=== PATIENT | male | born 1960 | race Caucasian/White ===

== ENCOUNTER 2017-07-13 06:17 | Emergency (ER) | payer SELFPAY ==
[2017-07-13] MEDS ORDERED: OXYCODONE-ACETAMINOPHEN 5-325 MG TABLET PO ONE (07:39)
--- NOTE | 2017-07-13 07:41 | ER Document Report ---
HPI - HPI Patient complains to provider of: right shoulder pain Onset: Yesterday Onset/Duration: Sudden Quality of pain: Sharp Severity: Severe Pain Level: 5 Context: Patient states he tripped landing on right shoulder last night about 930. Complains of pain and states he is unable to move the shoulder. Does have a history of multiple fractures and orthopedic surgeries in the past. Associated Symptoms: None Exacerbated by: Walking Relieved by: Denies Similar symptoms previously: Yes Recently seen / treated by doctor: No - ROS ROS below otherwise negative: Yes Systems Reviewed and Negative: Yes All other systems reviewed and negative - CONSTITUTIONAL Constitutional: DENIES: Fever - EENT EENT: DENIES: Congestion - NEURO Neurology: DENIES: Headache - CARDIOVASCULAR Cardiovascular: DENIES: Chest pain - RESPIRATORY Respiratory: DENIES: Trouble Breathing - GASTROINTESTINAL Gastrointestinal: DENIES: Abdominal Pain - MUSCULOSKELETAL Musculoskeletal: REPORTS: Extremity pain - Right shoulder - DERM Skin Color: Normal, [place] Skin Problems: None Past Medical History - General Information source: Patient - Social History Smoking Status: Never Smoker Frequency of alcohol use: Occasional Drug Abuse: None Lives with: Family Family History: Reviewed & Not Pertinent Patient has suicidal ideation: No Patient has homicidal ideation: No - Medical History Medical History: Negative Past Surgical History: Reports: Hx Neurologic Surgery - Head surgery to remove windsheild x2, Hx Orthopedic Surgery - left knee x12 right knee x1, left arm x2 , Hx Tonsillectomy Vertical Provider Document - CONSTITUTIONAL Agree With Documented VS: Yes Exam Limitations: No Limitations General Appearance: WD/WN, Mild Distress - HEENT HEENT: Atraumatic, Normocephalic - RESPIRATORY Respiratory: Breath Sounds Normal, No Respiratory Distress O2 Sat by Pulse Oximetry: 94 - CARDIOVASCULAR Cardiovascular: Regular Rate, Regular Rhythm - GI/ABDOMEN Gastrointestinal: Abdomen Soft - MUSCULOSKELETAL/EXTREMETIES Musculoskeletal/Extremeties: Tender, No Edema. negative: Eccymosis Notes: Very tender to touch right shoulder, refuses to move shoulder due to pain. Tender along joint anteriorly and posteriorly. Also tender along right trapezius muscle. - NEURO Level of Consciousness: Awake, Alert, Appropriate - DERM Integumentary: Warm, Dry, No Rash Course - Re-evaluation Re-evalutation: 07/13/17 08:51 X-ray negative and this was discussed with the patient. - Vital Signs Vital signs: Temp Pulse Resp BP Pulse Ox 98.2 F 86 20 146/95 H 94 07/13/17 06:22 07/13/17 06:22 07/13/17 06:22 07/13/17 06:22 07/13/17 06:22 Discharge - Discharge Clinical Impression: Contusion of right shoulder Qualifiers: Encounter type: initial encounter Qualified Code(s): S40.011A - Contusion of right shoulder, initial encounter Condition: Good Disposition: HOME, SELF-CARE Additional Instructions: Wear arm sling to help decrease movement of shoulder while painful Ice packs as needed Tylenol as needed, pain medication as needed Follow-up with your doctor for recheck if not better in 1 week. Return as needed Prescriptions: Oxycodone HCl/Acetaminophen [Percocet 10-325 Mg Tablet] 1 each PO TID PRN #15 tablet PRN Reason: Referrals: LOYDA GARLAND MD [ACTIVE STAFF] - Follow up as needed
--- NOTE | 2017-07-13 08:31 | RADIOLOGY REPORT (SQ) ---
EXAM DESCRIPTION: SHOULDER RIGHT 2 OR MORE VIEWS COMPLETED DATE/TIME: 07/13/2017 7:27 am REASON FOR STUDY: right shoulder injury COMPARISON: None. NUMBER OF VIEWS: Three views. TECHNIQUE: Internal rotation, external rotation, and Y view images acquired of the right shoulder. LIMITATIONS: None. FINDINGS: MINERALIZATION: Normal. BONES: No acute fracture or dislocation. No worrisome bone lesions. No significant osteophytes. GLENOHUMERAL JOINT: No significant findings. ACROMIOCLAVICULAR JOINT: Small osteophytes. No AC joint widening SOFT TISSUES: No calcifications. VISUALIZED RIBS, SPINE, AND LUNG: No other significant finding. OTHER: No other significant finding. IMPRESSION: No acute fracture or malalignment. Mild acromioclavicular joint bony spurring. TECHNICAL DOCUMENTATION: JOB ID: [id number] [employer]- All Rights Reserved Reading location - IP/workstation name: [email or web address]
[2017-07-13 09:15] VITALS: BP 124/68
== END 2017-07-13 09:15 | disposition home or self-care (01) ==
LOC: ER 06:17
DX: S40.011A Contusion of right shoulder, initial encounter (principal); M25.511 Pain in right shoulder; W01.0XXA Fall on same level from slipping, tripping and stumbling without subsequent striking against object, initial encounter; Y92.009 Unspecified place in unspecified non-institutional (private) residence as the place of occurrence of the external cause; Z98.890 Other specified postprocedural states
CPT/HCPCS: 99283

== ENCOUNTER 2017-09-03 15:59 | Emergency (ER) | payer OTHER ==
[2017-09-03] MEDS ORDERED: LIDOCAINE 1% INJ-PF (10 MG/ML) 30 ML SDV INJ ONE (16:14)
[2017-09-03] MEDS ORDERED: DIPH/PERTUSS(ACELL)/TETANUS VAC/PF 0.5 ML SYR (>=10YO) IM ONE (16:14)
--- NOTE | 2017-09-03 16:18 | ER Document Report ---
HPI - HPI Patient complains to provider of: Hand laceration Onset: This afternoon Onset/Duration: Sudden Quality of pain: Achy Pain Level: 3 Context: Patient was attempting to remove a part from a vehicle and his hand slipped cutting it on metal. Patient denies any change in sensation or mobility. Associated Symptoms: Other - Left hand laceration Exacerbated by: Denies Relieved by: Denies Similar symptoms previously: No Recently seen / treated by doctor: No - ROS ROS below otherwise negative: Yes Systems Reviewed and Negative: Yes All other systems reviewed and negative - NEURO Neurology: DENIES: Weakness - MUSCULOSKELETAL Musculoskeletal: DENIES: Extremity pain - DERM Skin Color: Normal Skin Problems: Laceration Past Medical History - General Information source: Patient - Social History Smoking Status: Never Smoker Frequency of alcohol use: Occasional Drug Abuse: None Occupation: None Family History: Reviewed & Not Pertinent - Medical History Medical History: Negative Renal/ Medical History: Denies: Hx Peritoneal Dialysis Past Surgical History: Reports: Hx Neurologic Surgery - Head surgery to remove windsheild x2, Hx Orthopedic Surgery - left knee x12 right knee x1, left arm x2 , Hx Tonsillectomy Vertical Provider Document - CONSTITUTIONAL Agree With Documented VS: Yes Exam Limitations: No Limitations - INFECTION CONTROL TRAVEL OUTSIDE OF THE [place] IN LAST 30 DAYS: No - HEENT HEENT: Atraumatic, Normocephalic - NECK Neck: Normal Inspection - RESPIRATORY Respiratory: No Respiratory Distress - CARDIOVASCULAR Pulses: Normal: Radial - MUSCULOSKELETAL/EXTREMETIES Musculoskeletal/Extremeties: MAEW, FROM - NEURO Level of Consciousness: Awake, Alert, Appropriate Motor/Sensory: No Motor Deficit, No Sensory Deficit - DERM Integumentary: Warm, Dry, Laceration - 1.25 cm lac dorsal aspect of left 3 MCP joint Course - Vital Signs Vital signs: Temp Pulse Resp BP Pulse Ox 99.2 F 104 H 16 142/93 H 96 09/03/17 16:08 09/03/17 16:08 09/03/17 16:08 09/03/17 16:08 09/03/17 16:08 Procedures - Laceration/Wound Repair Left Hand Wound length (cm): 1.2 Wound's Depth, Shape: Linear Laceration pre-procedure: Shur-Clens applied Anesthetic type: 1% Lidocaine Wound explored: Clean Wound Repaired With: Sutures Suture Size/Type: 5:0, Ethilon Number of Sutures: 3 Layer Closure?: No Post-procedure wound care: Sterile dressing applied Post-procedure NV exam normal: Yes Complications: No Hands back picture: 1 - lac Discharge - Discharge Clinical Impression: Hand laceration Qualifiers: Encounter type: initial encounter Foreign body presence: without foreign body Laterality: left Qualified Code(s): S61.412A - Laceration without foreign body of left hand, initial encounter Condition: Stable Disposition: HOME, SELF-CARE Instructions: Laceration Care ([facility]), Tetanus Immunization Given ([facility]) Additional Instructions: Return immediately for any new or worsening symptoms Followup with your primary care provider, call tomorrow to make a followup appointment Suture removal in 14 days Referrals: CONNER NINO, [ACTIVE STAFF] - Follow up as needed
[2017-09-03 17:30] VITALS: BP 141/96
== END 2017-09-03 17:30 | disposition home or self-care (01) ==
LOC: ER 15:59
DX: S61.412A Laceration without foreign body of left hand, initial encounter (principal); W45.8XXA Other foreign body or object entering through skin, initial encounter; Y93.89 Activity, other specified; Y92.59 Other trade areas as the place of occurrence of the external cause; Y99.0 Civilian activity done for income or pay
CPT/HCPCS: 99283; 90471; 90715; 12001; J3490

== ENCOUNTER 2017-10-04 18:52 | Emergency (ER) | payer OTHER ==
--- NOTE | 2017-10-04 19:26 | ER Document Report ---
HPI - HPI Pain Level: 4 Past Medical History - Social History Family History: Reviewed & Not Pertinent Renal/ Medical History: Denies: Hx Peritoneal Dialysis Past Surgical History: Reports: Hx Neurologic Surgery - Head surgery to remove windsheild x2, Hx Orthopedic Surgery - left knee x12 right knee x1, left arm x2 , Hx Tonsillectomy Vertical Provider Document - INFECTION CONTROL TRAVEL OUTSIDE OF THE [place] IN LAST 30 DAYS: No Course - Vital Signs Vital signs: Temp Pulse Resp BP Pulse Ox 99.0 F 89 20 157/101 H 95 10/04/17 19:18 10/04/17 19:18 10/04/17 19:18 10/04/17 19:18 10/04/17 19:18
--- NOTE | 2017-10-04 19:44 | ER Document Report ---
ED Medical Screen (RME) - General Chief Complaint: Finger Injury Stated Complaint: FINGER PAIN Time Seen by Provider: 10/04/17 19:26 Mode of Arrival: Ambulatory Information source: Patient Notes: 56-year-old male started with a hangnail of the third left middle finger and now it is progressed to a large paronychia. No felon. Needs I&D. TRAVEL OUTSIDE OF THE [place]. IN LAST 30 DAYS: No - Related Data Allergies/Adverse Reactions: ibuprofen Adverse Reaction (Verified 10/04/17 18:59) Past Medical History Renal/ Medical History: Denies: Hx Peritoneal Dialysis Past Surgical History: Reports: Hx Neurologic Surgery - Head surgery to remove windsheild x2, Hx Orthopedic Surgery - left knee x12 right knee x1, left arm x2 , Hx Tonsillectomy Physical Exam - Vital signs Vitals: Temp Pulse Resp BP Pulse Ox 99.0 F 89 20 157/101 H 95 10/04/17 19:18 10/04/17 19:18 10/04/17 19:18 10/04/17 19:18 10/04/17 19:18 Course - Vital Signs Vital signs: Temp Pulse Resp BP Pulse Ox 99.0 F 89 20 157/101 H 95 10/04/17 19:18 10/04/17 19:18 10/04/17 19:18 10/04/17 19:18 10/04/17 19:18
[2017-10-04] MEDS ORDERED: LIDOCAINE 1% INJ-PF (10 MG/ML) 30 ML SDV INJ ONE (20:32)
[2017-10-04] MEDS ORDERED: LIDOCAINE 1% INJ-PF (10 MG/ML) 30 ML SDV ONE (20:34)
[2017-10-04] MEDS ORDERED: TRAMADOL HCL 50 MG TABLET PO ONE (20:44)
--- NOTE | 2017-10-04 20:46 | ER Document Report ---
HPI - HPI Pain Level: 4 Context: Patient is a 56-year-old male presents emergency department the chief complaint of swelling of the left middle finger. Patient states that it initially started a hangnail which he picked apart and has had intermittent pus draining from it but now over the past 2 days is swollen. He has been trying to utilize warm soaks at home. He denies any redness or tenderness at the tip of the finger on the base of the finger or with range of motion. - EENT EENT: DENIES: Sore Throat, Ear Pain, Eye problems - NEURO Neurology: DENIES: Headache, Weakness, Vision blurred, Dizzinesss / Vertigo - CARDIOVASCULAR Cardiovascular: DENIES: Chest pain - RESPIRATORY Respiratory: DENIES: Trouble Breathing, Coughing - GASTROINTESTINAL Gastrointestinal: DENIES: Abdominal Pain, Black / Bloody Stools - URINARY Urinary: DENIES: Dysuria, Urgency, Frequency - MUSCULOSKELETAL Musculoskeletal: REPORTS: Extremity pain - LEFT HAND Past Medical History - General Information source: Patient - Social History Smoking Status: Unknown if Ever Smoked Family History: Reviewed & Not Pertinent Patient has suicidal ideation: No Patient has homicidal ideation: No Renal/ Medical History: Denies: Hx Peritoneal Dialysis Past Surgical History: Reports: Hx Neurologic Surgery - Head surgery to remove windsheild x2, Hx Orthopedic Surgery - left knee x12 right knee x1, left arm x2 , Hx Tonsillectomy Vertical Provider Document - CONSTITUTIONAL Agree With Documented VS: Yes Notes: PHYSICAL EXAM GENERAL: Alert, interacts well. EXTREMITIES:. No edema, radial pulses 2/4 bilaterally. No cyanosis. 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 NEUROLOGICAL: Alert and oriented x4. Normal speech. PSYCH: Normal affect, normal mood. SKIN: Warm, dry, normal turgor. No rashes or lesions noted. Patient with paronychia of the left middle finger - INFECTION CONTROL TRAVEL OUTSIDE OF THE [place] IN LAST 30 DAYS: No Course - Re-evaluation Re-evalutation: Patient is a 56 year old male who presents with symptoms consistent with a paronychia without any associated cellulitis, felon, nailbed injury or tenosynovitis. Site was 90 to the bedside. Patient told the procedure well. Patient educated on utilizing frequent warm soaks enough to results and to take antibiotics to follow-up with primary care. Patient agrees with plan. Given strict return precautions and stable for discharge home - Vital Signs Vital signs: Temp Pulse Resp BP Pulse Ox 99.0 F 89 20 156/108 H 95 10/04/17 19:18 10/04/17 19:18 10/04/17 19:18 10/04/17 20:31 10/04/17 19:18 Procedures - Incision and Drainage Left Finger 3rd digit Type: Simple Anesthetic type: 1% Lidocaine mL's of anesthetic: 15 Blade size: 11 I&D procedure: Betadine prep applied Incision Method: Incision made by scalpel Discharge - Discharge Clinical Impression: Paronychia Condition: Good Disposition: HOME, SELF-CARE Instructions: Paronychia ([facility]), Post Incision and Drainage Additional Instructions: Utilize warm soaks as much as tolerated Prescriptions: Cephalexin Monohydrate [Keflex 500 mg Capsule] 500 mg PO QID #20 capsule Tramadol HCl 50 mg PO BID #6 tablet Referrals: ADRIANNA ERNANDEZ DO [NO LOCAL MD] - Follow up in 3-5 days
[2017-10-04] MEDS ORDERED: CEPHALEXIN 500 MG CAPSULE PO ONE ×2 (21:11→21:15)
[2017-10-04 21:26] VITALS: BP 163/102
== END 2017-10-04 21:26 | disposition home or self-care (01) ==
LOC: ER 18:52
DX: L03.012 Cellulitis of left finger (principal)
CPT/HCPCS: 99283

== ENCOUNTER 2018-03-30 16:14 | Emergency (ER) | payer OTHER ==
[2018-03-30] MEDS ORDERED: DIAZEPAM INJ 10 MG/2 ML DISP.SYRIN IM ONE (18:30)
[2018-03-30] MEDS ORDERED: LIDOCAINE 5% (700 MG) TRANSDERMAL ADH..PATCH TP ONE (18:31)
--- NOTE | 2018-03-30 18:54 | ER Document Report ---
HPI - HPI Patient complains to provider of: back spasms Time Seen by Provider: 03/30/18 18:12 Onset: Other - 2 weeks Onset/Duration: Gradual Pain Level: 5 Context: 37-year-old male with extensive pain history secondary to multiple traumas presents to the emergency department with back spasms times 2 weeks. He states he has fibromyalgia that starts in his hands and his feet in which the pain gets severe and causes him to tense up. He then developed back pain that started 2 weeks ago, and it led to back spasms 2 days ago causing him unrelenting pain. He says he has a high pain tolerance and can deal with the pain but the back spasms he can handle. He cannot take NSAIDs because he said he was taking them for 16 years and developed severe gastritis. Only taken Tylenol for and lidocaine patches for the pain. Eyes fevers, urinary retention , does endorse overflow incontinence, denies any new numbness or tingling in his bilateral lower extremities, denies saddle paresthesia - CONSTITUTIONAL Constitutional: DENIES: Fever, Chills Past Medical History - General Information source: Patient - Social History Smoking Status: Former Smoker Frequency of alcohol use: every night Drug Abuse: None Family History: Reviewed & Not Pertinent Patient has suicidal ideation: No Patient has homicidal ideation: No Renal/ Medical History: Denies: Hx Peritoneal Dialysis Past Surgical History: Reports: Hx Neurologic Surgery - Head surgery to remove windsheild x2, Hx Orthopedic Surgery - left knee x12 right knee x1, left arm x2 , Hx Tonsillectomy Vertical Provider Document - CONSTITUTIONAL Agree With Documented VS: Yes - INFECTION CONTROL TRAVEL OUTSIDE OF THE [place] IN LAST 30 DAYS: No - HEENT HEENT: Atraumatic, Normocephalic - NECK Neck: Normal Inspection - RESPIRATORY Respiratory: Breath Sounds Normal, No Respiratory Distress - CARDIOVASCULAR Cardiovascular: Regular Rate, Regular Rhythm, No Murmur - NEURO Level of Consciousness: Awake, Alert, Appropriate Motor/Sensory: No Motor Deficit - Full range of active and passive motion, No Sensory Deficit - Sensory intact to light touch. Patient with baseline paresthesias distal left lower extremity. negative: Sensory Deficit, Weak Motor Strength LLE Course - Vital Signs Vital signs: Temp Pulse Resp BP Pulse Ox 98.1 F 96 16 154/98 H 93 03/30/18 16:23 03/30/18 16:23 03/30/18 16:23 03/30/18 16:23 03/30/18 16:23 Discharge - Discharge Clinical Impression: Back muscle spasm Condition: Stable Disposition: HOME, SELF-CARE Instructions: Low Back Pain ([facility]), Warm Packs ([facility]) Additional Instructions: you were seen in the emergency department this evening for back muscle spasms. Continue to take the Tylenol as you have been taking it as it is a safe dose. Also, you can continue to use the Lidoderm patches if it gives her relief. I have prescribed you with a muscle relaxant called Flexeril. This can be sedating so use extreme caution or try to avoid driving when taking it. If possible, you can take it before bed to help relax you before going to sleep. [facility]. If you develop fever, urinary retention where you are unable to urinate, you develop saddle paresthesia i.e. numbness in your sit bones or any new numbness or tingling in your legs immediately return to the emergency department.
[2018-03-30 19:59] VITALS: BP 145/99
== END 2018-03-30 19:55 | disposition home or self-care (01) ==
LOC: ER 16:14
DX: M62.830 Muscle spasm of back (principal); M79.7 Fibromyalgia; Z79.899 Other long term (current) drug therapy; Z87.891 Personal history of nicotine dependence
CPT/HCPCS: 99283; 96372; J3360

== ENCOUNTER 2018-07-08 15:47 | Emergency (ER) | payer OTHER ==
[2018-07-08] MEDS ORDERED: ASPIRIN 81 MG TABLET, CHEWABLE PO ONE (16:49)
--- NOTE | 2018-07-08 16:54 | ER Document Report ---
ED Medical Screen (RME) - General Chief Complaint: Chest Pain Stated Complaint: CHEST PAIN, SHORTNESS OF BREATH Time Seen by Provider: 07/08/18 16:51 TRAVEL OUTSIDE OF THE [place] IN LAST 30 DAYS: No - HPI Notes: 07/08/18 16:51 Patient came in complaining of chest pain with shortness of breath. He said his father of massive [place]. 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 Physical exam shows a obesity, chest and abdomen unremarkable. - Related Data Allergies/Adverse Reactions: ibuprofen Adverse Reaction (Verified 07/08/18 15:49) Past Medical History - Social History Frequency of alcohol use: daily Drug Abuse: None Renal/ Medical History: Denies: Hx Peritoneal Dialysis Past Surgical History: Reports: Hx Neurologic Surgery - Head surgery to remove windsheild x2, Hx Orthopedic Surgery - left knee x12 right knee x1, left arm x2, Hx Tonsillectomy Physical Exam - Vital signs Vitals: Temp Pulse Resp BP Pulse Ox 98.1 F 98 16 132/114 H 97 07/08/18 16:37 07/08/18 16:37 07/08/18 16:37 07/08/18 16:37 07/08/18 16:37 Course - Vital Signs Vital signs: Temp Pulse Resp BP Pulse Ox 98.1 F 98 16 132/114 H 97 07/08/18 16:37 07/08/18 16:37 07/08/18 16:37 07/08/18 16:37 07/08/18 16:37
[2018-07-08 17:14] LABS: ABSOLUTE BASOPHILS # (AUTO) 0.1 10^3/uL (0.0-0.2); ABSOLUTE EOSINOPHILS # (AUTO) 0.2 10^3/uL (0.0-0.6); ABSOLUTE LYMPHOCYTES (AUTO) 2.7 10^3/uL (0.5-4.7); ABSOLUTE MONOCYTES (AUTO) 0.7 10^3/uL (0.1-1.4); BASOPHILS % (AUTO) 0.5 % (0-2); EOSINOPHILS % (AUTO) 1.8 % (0-6); HEMATOCRIT 46.1 % (37.9-51.0); HEMOGLOBIN 16.5 g/dL (13.5-17.0); LYMPHOCYTES % (AUTO) 27.9 % (13-45); MEAN CORPUSCULAR HEMOGLOBIN 34.9 pg (27.0-33.4); MEAN CORPUSCULAR HGB CONC 35.8 g/dL (32.0-36.0); MEAN CORPUSCULAR VOLUME 98 fl (80-97); MONOCYTES % (AUTO) 7.7 % (3-13); PLATELET COUNT 210 10^3/uL (150-450); RED BLOOD COUNT 4.73 10^6/uL (4.35-5.55); RED CELL DISTRIBUTION WIDTH 12.4 % (11.5-14.0); SEGMENTED NEUTROPHILS % (AUTO) 62.1 % (42-78); TOTAL CELLS COUNTED % (AUTO) 100 %; WHITE BLOOD COUNT 9.6 10^3/uL (4.0-10.5)
[2018-07-08 17:19] LABS: INTERNATIONAL RATION (INR) 0.97; PROTHROMBIN TIME 13.4 SEC (11.4-15.4)
[2018-07-08 17:32] LABS: D-DIMER < 0.27 ug/mL (0.00-0.50)
[2018-07-08 17:36] LABS: ALANINE AMINOTRANSFERASE 35 U/L (21-72); ALBUMIN 4.8 g/dL (3.5-5.0); ALKALINE PHOSPHATASE 78 U/L (38-126); ANION GAP 12 (5-19); ASPARTATE AMINO TRANSFERASE 29 U/L (17-59); BILIRUBIN,DIRECT 0.3 mg/dL (0.0-0.4); BILIRUBIN,TOTAL 0.8 mg/dL (0.2-1.3); BLOOD UREA NITROGEN 19 mg/dL (7-20); CALCIUM 10.1 mg/dL (8.4-10.2); CARBON DIOXIDE 23 mmol/L (22-30); CHLORIDE 104 mmol/L (98-107); CREATINE KINASE 80 U/L (55-170); GLUCOSE 111 mg/dL (75-110); POTASSIUM 4.5 mmol/L (3.6-5.0); SODIUM 139.2 mmol/L (137-145); TOTAL PROTEIN 7.9 g/dL (6.3-8.2)
[2018-07-08 17:48] LABS: CREATINE KINASE MB 0.64 ng/mL (<4.55)
--- NOTE | 2018-07-08 17:48 | RADIOLOGY REPORT (SQ) ---
EXAM DESCRIPTION: CHEST SINGLE VIEW COMPLETED DATE/TIME: 07/08/2018 5:12 pm REASON FOR STUDY: chest pain COMPARISON: 08/06/2017 EXAM PARAMETERS: NUMBER OF VIEWS: One view. TECHNIQUE: Single frontal radiographic view of the chest acquired. RADIATION DOSE: NA LIMITATIONS: None. FINDINGS: LUNGS AND PLEURA: No opacities, masses or pneumothorax. No pleural effusion. MEDIASTINUM AND HILAR STRUCTURES: No masses. Contour normal. HEART AND VASCULAR STRUCTURES: Heart normal in size. Normal vasculature. BONES: No acute findings. HARDWARE: None in the chest. OTHER: No other significant finding. IMPRESSION: NO ACUTE RADIOGRAPHIC FINDING IN THE CHEST. TECHNICAL DOCUMENTATION: JOB ID: [id number] [employer]- All Rights Reserved Reading location - IP/workstation name: [email or web address]
[2018-07-08 17:52] LABS: TROPONIN I 0.049 ng/mL
--- NOTE | 2018-07-08 19:22 | EKG REPORT ---
SEVERITY:- NORMAL ECG - SINUS RHYTHM : Confirmed by: Endy Ford MD 08-Jul-2018 19:21:51
--- NOTE | 2018-07-09 00:08 | ER Document Report ---
ED General - General Chief Complaint: Chest Pain Stated Complaint: CHEST PAIN, SHORTNESS OF BREATH Time Seen by Provider: 07/08/18 16:51 TRAVEL OUTSIDE OF THE [place] IN LAST 30 DAYS: No - HPI Notes: Patient presents emergency department for evaluation of chest pain. 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 He states that about an hour after that he developed a tightness in his chest, that was substernal. He does not believe it radiated anywhere. He did have some pain in his left posterior scapular region, but states that he has fibromyalgia and this may have been the etiology. He felt some associated shortness of breath as well. Shortly after his arrival here in the emergency department he was chest pain- free. He has not had any resurgence of his chest pain. He admits that he does not see a doctor regularly. He has been told that his blood pressure has been elevated in the past but has not taken any medications for it. - Related Data Allergies/Adverse Reactions: ibuprofen Adverse Reaction (Verified 07/08/18 15:49) Past Medical History - Social History Smoking Status: Never Smoker Frequency of alcohol use: daily Drug Abuse: None Family History: CAD - Father, early CAD Patient has suicidal ideation: No Patient has homicidal ideation: No Renal/ Medical History: Denies: Hx Peritoneal Dialysis Other: Fibromyalgia Past Surgical History: Reports: Hx Neurologic Surgery - Head surgery to remove windsheild x2, Hx Orthopedic Surgery - left knee x12 right knee x1, left arm x2, Hx Tonsillectomy Review of Systems - Review of Systems Constitutional: No symptoms reported EENT: No symptoms reported Cardiovascular: See HPI Respiratory: See HPI Gastrointestinal: No symptoms reported Genitourinary: No symptoms reported Musculoskeletal: See HPI Skin: No symptoms reported Neurological/Psychological: No symptoms reported Physical Exam - Vital signs Vitals: Temp Pulse Resp BP Pulse Ox 98.1 F 98 16 132/114 H 97 07/08/18 16:37 07/08/18 16:37 07/08/18 16:37 07/08/18 16:37 07/08/18 16:37 - Notes Notes: Vital signs reviewed, please refer to chart. Patient is normocephalic, atraumatic. Pupils equal round, reactive to light. Neck is supple without meningismus. Heart is regular rate and rhythm. Lungs are clear to auscultation bilaterally. Abdomen is soft, nontender, normoactive bowel sounds throughout. Extremities without cyanosis, clubbing, edema. Calves are nontender. Peripheral pulses are equal. Skin is warm and dry. Patient is awake, alert, neurological exam is nonfocal. Course - Re-evaluation Re-evalutation: 07/09/18 00:06 Patient presented to the emergency department for evaluation. He was initially seen by the doctor in triage, orders placed. Is placed on a residential monitor. He remained moderately hypertensive, but not to emergency or urgency levels. He remained chest pain-free throughout the course of his stay here in the emergency department. He was actually sleeping comfortably on my evaluation. Laboratory investigations revealed no significant elevations in his troponin. He does have a very mildly elevated proBNP, but he is overweight. We discussed his risk factors. He does have untreated high blood pressure. We discussed lifetime modifications and weight loss for this. He will likely need medications. I expressed to him my concern over his risk factors and the need for him to follow-up. He voiced understanding to this. At this point his heart score is only 3. He is chest pain-free. I do believe an outpatient stress test is appropriate at this time. I explained this to the patient, but also explained that any return of his chest pain should prompt immediate return. He voiced understanding to this. I will give him instruction is on chest pain as well as high blood pressure, he is to return to the emergency department with worsening or new concerning symptoms of any sort. - Vital Signs Vital signs: Temp Pulse Resp BP Pulse Ox 98.1 F 98 19 152/99 H 93 07/08/18 16:37 07/08/18 16:37 07/08/18 23:01 07/08/18 23:01 07/08/18 23:01 - Laboratory Result Diagrams: 07/08/18 16:51 07/08/18 16:51 Laboratory results interpreted by me: 07/08/18 07/08/18 07/08/18 16:51 16:51 16:51 MCV 98 H MCH 34.9 H APTT 36.0 H Glucose 111 H - Diagnostic Test Radiology reviewed: Reports reviewed - No acute cardiopulmonary disease - EKG Interpretation by Me Additional EKG results interpreted by me: 07/09/18 00:10 Sinus mechanism with a rate of 90 bpm. Normal axis and intervals, no acute ST changes concerning for ischemia or infarction. Discharge - Discharge Clinical Impression: Chest pain, Elevated blood pressure reading Instructions: Chest Pain of Unclear Cause ([facility]), High Blood Pressure ([facility]) Additional Instructions: Your workup here today did not reveal a clear cause of your chest pain. You should have further testing, including an outpatient stress test. Lifestyle modifications, including weight loss, avoidance of sodium, may be helpful in lowering your blood pressure. You should see your primary care physician in regards to treating your blood pressure as well. If your chest pain returns, or you develop new or concerning symptoms of any sort, return immediately to the emergency department for reevaluation. Referrals: [facility] [Provider Group] - Follow up as needed
[2018-07-09 00:35] VITALS: BP 158/99
== END 2018-07-09 00:35 | disposition home or self-care (01) ==
LOC: ER 15:47
DX: R07.89 Other chest pain (principal); R03.0 Elevated blood-pressure reading, without diagnosis of hypertension; R00.2 Palpitations; M25.512 Pain in left shoulder; E66.3 Overweight; Z82.49 Family history of ischemic heart disease and other diseases of the circulatory system
CPT/HCPCS: 36415; 71045; 80053; 82550; 82553; 83880; 84484; 85025; 85379; 85610; 85730; 93005; 93010; 99285

== ENCOUNTER 2019-01-28 15:33 | Emergency (ER) | payer SELFPAY ==
[2019-01-28 15:38] VITALS: BP 140/105
[2019-01-28] MEDS ORDERED: KETOROLAC TROMETHAMINE 60 MG/2 ML SDV IM ONE (15:44)
[2019-01-28] MEDS ORDERED: HYDROCODONE/ACETAMINOPHEN 5-325 MG (6 TAB/ER DISP) PO PRN (15:44)
--- NOTE | 2019-01-28 15:50 | ER Document Report ---
HPI - HPI Time Seen by Provider: 01/28/19 15:44 Notes: Patient is a 58-year-old male with a history of fibromyalgia and multiple orthopedic surgeries who presents complaining of left shoulder pain for the past several months, but increasing over the past couple weeks. Patient states that it is gotten to the point where if he tries to flex his arm or abduct his arm he will feel a sharp pain in the shoulder. Patient states that he has not been evaluated for this as he does not have insurance at this time. Denies any injury. 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 Patient states that he does not have a true allergy to Motrin, but it does upset his stomach. He does take Aleve regularly otherwise. Pain does not radiate. He has not noticed any swelling or redness. Denies any headache, fever, neck pain, URI, sore throat, chest pain, palpitations, syncope, cough, shortness of breath, wheeze, dyspnea, abdominal pain, nausea/vomiting/diarrhea, urinary retention, dysuria, hematuria, loss of control of bowel or bladder, numbness/tingling, muscle paralysis/weakness, or rash. - ROS Systems Reviewed and Negative: Yes All other systems reviewed and negative Past Medical History - Social History Smoking Status: Unknown if Ever Smoked Family History: CAD - Father, early CAD Renal/ Medical History: Denies: Hx Peritoneal Dialysis Past Surgical History: Reports: Hx Neurologic Surgery - Head surgery to remove windsheild x2, Hx Orthopedic Surgery - left knee x12 right knee x1, left arm x2, Hx Tonsillectomy Vertical Provider Document - CONSTITUTIONAL Agree With Documented VS: Yes Notes: PHYSICAL EXAMINATION: GENERAL: Well-appearing, well-nourished and in no acute distress. NECK: Normal range of motion, supple without lymphadenopathy. Non-tender. Spurling negative. No rigidity/meningismus. LUNGS: Breath sounds clear to auscultation bilaterally and equal. No wheezes rales or rhonchi. HEART: Regular rate and rhythm without murmurs, rubs, gallops. Musculoskeletal: Lt shoulder: FROM to passive. LROM to active due to pain. Strength 4+/5 due to pain. + impingement test. No biceps tendon tenderness. No crepitus. No erythema or warmth. No deformity or ecchymosis. RC intact 5+/5 strength but 4+/5 with empty can due to pain when he flexes/abducts. Extremities: No cyanosis, clubbing, or edema b/l. Peripheral pulses 2+. Capillary refill less than 3 seconds. NEUROLOGICAL: Normal speech, normal gait. Normal sensory, motor exams PSYCH: Normal mood, normal affect. SKIN: Warm, Dry, normal turgor, no rashes or lesions noted. - INFECTION CONTROL TRAVEL OUTSIDE OF THE [place] IN LAST 30 DAYS: No Course - Re-evaluation Re-evalutation: 01/28/19 15:47 Patient is an afebrile, well-hydrated, 58-year-old male who presents to the ED with left shoulder pain which I suspect to be impingement. This has been an ongoing issue for 4-6mos w/o trauma. Vitals are acceptable without any significant tachycardia, tachypnea, or hypoxia. PE is otherwise unremarkable for any neurovascular compromise, obvious tendon/ligament rupture, obvious fr acture/dislocation, septic joint. Toardol given IM. Patient is nontoxic- appearing. No other labs or imaging warranted at this time based on H&P. Conservative measures otherwise for symptoms. Recheck with your PCM in 3-5 days. Consider consult orthopedics. Return to the ED with any worsening/concerning symptoms otherwise as reviewed in discharge. Patient is in agreement. - Vital Signs Vital signs: Temp Pulse Resp BP Pulse Ox 97.6 F 88 18 140/105 H 95 01/28/19 15:37 01/28/19 15:37 01/28/19 15:37 01/28/19 15:37 01/28/19 15:37 Discharge - Discharge Clinical Impression: Left shoulder pain Qualifiers: Chronicity: acute Qualified Code(s): M25.512 - Pain in left shoulder Condition: Stable Disposition: HOME, SELF-CARE Instructions: Exercise Program for the Shoulder ([facility]) Additional Instructions: Rest, Ice, Compression, Elevation Tylenol/ibuprofen as needed Light stretches daily Strength exercises as able Moist heat and massage may help F/u with your PCP in 3-5 days for a recheck Consider consult(s) with Orthopedics/physical therapy for ongoing/worsening symptoms Return to the ED with any worsening symptoms and/or development of fever, headache, chest pain, palpitations, syncope, shortness of breath, trouble breathing, abdominal pain, n/v/d, muscle weakness/paralysis, numbness/tingling, swelling, redness, or other worsening symptoms that are concerning to you. Forms: Elevated Blood Pressure Referrals: [facility] [Provider Group] - Follow up as needed PADMAJA RAMIRES JR, DO [ACTIVE PROVISIONAL STAFF] - Follow up as needed
== END 2019-01-28 16:07 | disposition home or self-care (01) ==
LOC: ER 15:33
DX: M25.512 Pain in left shoulder (principal)
CPT/HCPCS: J1885

== ENCOUNTER 2019-04-01 06:00 | Emergency (ER) | payer OTHER ==
[2019-04-01] MEDS ORDERED: BENZONATATE 100 MG CAPSULE PO ONE (07:01)
[2019-04-01] MEDS ORDERED: AZITHROMYCIN 250 MG TABLET PO ONE (07:01)
[2019-04-01] MEDS ORDERED: PREDNISONE 20 MG TABLET PO ONE (07:01)
[2019-04-01 07:33] VITALS: BP 152/99
--- NOTE | 2019-04-01 08:33 | ER Document Report ---
Entered by MARGO JAIME SCRIBE 04/01/19 0701 Acting as scribe for:LA CARR MD ED General - General Chief Complaint: Shortness Of Breath Stated Complaint: SHORTNESS OF BREATH Time Seen by Provider: 04/01/19 06:50 Mode of Arrival: Ambulatory Information source: Patient Notes: This 58 year old male with a history of pneumonia (last time in 2017) presents to the ED today with complaints of a cough that began 2 days ago. Patient notes that there is yellow phlegm production with the cough and reports a subjective fever. TRAVEL OUTSIDE OF THE [place] 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 Family History: CAD - Father, early CAD Patient has suicidal ideation: No Patient has homicidal ideation: No Pulmonary Medical History: Reports: Hx Pneumonia - x3-4, last time 2016 Past Surgical History: Reports: Hx Neurologic Surgery - Head surgery to remove windshield x2, Hx Orthopedic Surgery - left knee x12 right knee x1, left arm x2, Hx Tonsillectomy Review of Systems - Review of Systems Constitutional: See HPI, Fever - subjective fever EENT: No symptoms reported Cardiovascular: No symptoms reported Respiratory: See HPI, Cough - yellow phlegm production Gastrointestinal: No symptoms reported Genitourinary: No symptoms reported Male Genitourinary: No symptoms reported Musculoskeletal: No symptoms reported Skin: No symptoms reported Hematologic/Lymphatic: No symptoms reported Neurological/Psychological: No symptoms reported -: Yes All other systems reviewed and negative Physical Exam - Vital signs Vitals: Temp Pulse Resp BP Pulse Ox 98 F 83 20 149/91 H 94 04/01/19 06:08 04/01/19 06:08 04/01/19 06:08 04/01/19 06:08 04/01/19 06:08 Interpretation: Normal - General General appearance: Alert In distress: None - HEENT Head: Normocephalic, Atraumatic Eyes: Normal Pupils: PERRL Tympanic membrane: Retracted Nasal: Clear rhinorrhea Pharynx: Erythema - Respiratory Respiratory status: No respiratory distress Chest status: Nontender Breath sounds: Rhonchi, Other - coarse breath sounds Chest palpation: Normal - Cardiovascular Rhythm: Regular Heart sounds: Normal auscultation Murmur: No - Abdominal Inspection: Normal Distension: No distension Bowel sounds: Normal Tenderness: Nontender Organomegaly: No organomegaly - Back Back: Normal, Nontender - Extremities General upper extremity: Normal inspection General lower extremity: Normal inspection - Neurological Neuro grossly intact: Yes - Psychological Associated symptoms: Normal affect, Normal mood - Skin Skin Temperature: Warm Skin Moisture: Moist Skin Color: Normal Course - Re-evaluation Re-evalutation: 04/01/19 08:33 Patient has a bronchitis now for several days with yellow thick sputum. He has had pneumonia several times in the past by history, due to his age and previous episodes of pneumonia, I will treat this thick yellow sputum and bronchitis with antibiotics. - Vital Signs Vital signs: Temp Pulse Resp BP Pulse Ox 97.7 F 81 16 152/99 H 97 04/01/19 07:30 04/01/19 07:30 04/01/19 07:30 04/01/19 07:30 04/01/19 07:30 Discharge - Discharge Clinical Impression: Upper respiratory tract infection with cough, Bronchitis Condition: Stable Disposition: HOME, SELF-CARE Additional Instructions: Bronchitis You have acute bronchitis. This disease is an infection or inflammation of the air passageways in your lungs. Symptoms usually include cough, low grade fever, shortness of breath, and wheezing. The cough usually persists for a couple of weeks. Most cases of bronchitis get better without antibiotics. We prescribe antibiotics when we believe bacteria are damaging your airways, or if there's high risk the bronchitis will worsen into pneumonia. Increase your fluid intake. A cool mist humidifier may make your lungs more comfortable. An expectorant (cough medicine that loosens phlegm) can help. If you smoke, STOP!!! Recovery from bronchitis can be somewhat slow, but you should see improvement within a day or two. Repeated episodes of bronchitis may result in lung damage -- for example, chronic bronchitis, recurrent pneumonias, or emphysema. Call the doctor if you develop increasing fever, shortness of breath, chest pain, bloody sputum, or otherwise worsen. If you have not improved at all after several days, contact the physician. Start the prednisone and Zithromax tomorrow. You are given today's dose here in the emergency room. Take the Tessalon Perles to help suppress your cough, also use Delsym DM to help control your cough. Drink plenty of fluids get plenty of rest over the next few days. Follow-up with primary care provider if not improving. RETURN TO THE EMERGENCY ROOM IF ANY NEW OR WORSENING SYMPTOMS. Prescriptions: Prednisone [Deltasone 10 mg Tablet] 10 mg PO ASDIR PRN #15 tablet PRN Reason: Benzonatate [Tessalon Perles 100 mg Capsule] 100 mg PO ASDIR PRN #30 capsule PRN Reason: Azithromycin [Zithromax 250 mg Tablet] 250 mg PO DAILY #4 tablet Scribe Attestation: 04/01/19 07:02 I personally performed the services described in the documentation, reviewed and edited the documentation which was dictated to the scribe in my presence, and it accurately records my words and actions. I personally performed the services described in the documentation, reviewed and edited the documentation which was dictated to the scribe in my presence, and it accurately records my words and actions.
== END 2019-04-01 07:30 | disposition home or self-care (01) ==
LOC: ER 06:00
DX: J40 Bronchitis, not specified as acute or chronic (principal); J06.9 Acute upper respiratory infection, unspecified; R05 Cough; J34.89 Other specified disorders of nose and nasal sinuses; Z87.01 Personal history of pneumonia (recurrent); Z87.891 Personal history of nicotine dependence
CPT/HCPCS: 99283; J7512

== ENCOUNTER 2019-05-25 11:37 | Day surgery (SDC) | payer SELFPAY ==
[2019-05-25] MEDS ORDERED: OXYCODONE-ACETAMINOPHEN 5-325 MG TABLET PO ONE (11:41)
--- NOTE | 2019-05-25 11:41 | ER Document Report ---
ED Medical Screen (RME) - General Chief Complaint: Arm Injury Stated Complaint: RIGHT ARM INJURY Time Seen by Provider: 05/25/19 11:40 Mode of Arrival: Wheelchair Information source: Patient Notes: 58-year-old male presented to ED for crush injury to his right elbow. He states it pinned him in the bobcat with his head against the wall. His elbow is deformed. Patient is alert oriented respirations regular nonlabored. Does have range of motion to his fingers. He cannot move the elbow at all. I have greeted and performed a rapid initial assessment of this patient. A comprehensive ED assessment and evaluation of the patient, analysis of test results and completion of medical decision making process will be conducted by an additional ED providers. TRAVEL OUTSIDE OF THE [place] IN LAST 30 DAYS: No - Related Data Allergies/Adverse Reactions: ibuprofen Adverse Reaction (Verified 07/08/18 15:49) Past Medical History Pulmonary Medical History: Reports: Hx Pneumonia - x3-4, last time 2016 Renal/ Medical History: Denies: Hx Peritoneal Dialysis Past Surgical History: Reports: Hx Neurologic Surgery - Head surgery to remove windshield x2, Hx Orthopedic Surgery - left knee x12 right knee x1, left arm x2, Hx Tonsillectomy
--- NOTE | 2019-05-25 12:29 | RADIOLOGY REPORT (SQ) ---
EXAM DESCRIPTION: FOREARM RIGHT COMPLETED DATE/TIME: 05/25/2019 12:15 pm REASON FOR STUDY: Crush injury trapped in a [place] hog by a tree COMPARISON: None. NUMBER OF VIEWS: Two views. TECHNIQUE: Two radiographic images acquired of the right forearm, including elbow and wrist in at le ast one projection. LIMITATIONS: Elbow is rotated, elbow joint effusion could not be excluded FINDINGS: MINERALIZATION: Normal. BONES: No acute fracture. No lytic or blastic lesions SOFT TISSUES: Proximal forearm soft tissue swelling. No radiolucent foreign body. No radiopaque for eign body. OTHER: There is advanced osteoarthritis at the right elbow joint, with joint space narrowing and bony spurring. 1 cm loose body in the dorsal elbow joint IMPRESSION: No acute fracture or malalignment. Forearm soft tissue swelling Advanced osteoarthritis right elbow TECHNICAL DOCUMENTATION: JOB ID: [id number] [employer]- All Rights Reserved Reading location - IP/workstation name: [email or web address]
[2019-05-25] MEDS ORDERED: HYDROMORPHONE HCL INJ/PF 2 MG/ML AMPULE IV ONE ×2 (12:31→13:25)
--- NOTE | 2019-05-25 12:31 | RADIOLOGY REPORT (SQ) ---
EXAM DESCRIPTION: ELBOW RIGHT OVER 2 VIEWS COMPLETED DATE/TIME: 05/25/2019 12:15 pm REASON FOR STUDY: Crush injury trapped in a [place] hog by a tree COMPARISON: Right forearm two views same date NUMBER OF VIEWS: Four views. TECHNIQUE: AP, lateral, and both oblique radiographic images acquired of the right elbow. LIMITATIONS: None. FINDINGS: MINERALIZATION: Normal. BONES: No acute fracture or dislocation. No worrisome bone lesions. JOINT: No joint effusion. 1 cm loose body dorsal elbow joint. There is diffuse osteoarthritis with joint space narrowing and bony spurring. SOFT TISSUES: Forearm soft tissue swelling. No radiopaque or radiolucent foreign body OTHER: No other significant finding. IMPRESSION: Arthritis right elbow. No acute fracture TECHNICAL DOCUMENTATION: JOB ID: [id number] [employer]- All Rights Reserved Reading location - IP/workstation name: [email or web address]
--- NOTE | 2019-05-25 12:32 | RADIOLOGY REPORT (SQ) ---
EXAM DESCRIPTION: SHOULDER RIGHT 2 OR MORE VIEWS COMPLETED DATE/TIME: 05/25/2019 12:15 pm REASON FOR STUDY: Crush injury trapped in a [place] hog by a tree COMPARISON: 07/13/2017 NUMBER OF VIEWS: Three views. TECHNIQUE: Internal rotation, external rotation, and Y view images acquired of the right shoulder. LIMITATIONS: None. FINDINGS: MINERALIZATION: Normal. BONES: No acute fracture. No worrisome bone lesions. Mild bony spurring along the undersurface of t he acromion, and along the greater tuberosity right humeral head JOINTS: No glenohumeral malalignment. No widening at the acromioclavicular joint. VISUALIZED LUNGS AND RIBS: No pneumothorax. No rib fracture. SOFT TISSUES: No radiopaque foreign body. OTHER: No other significant finding. IMPRESSION: No acute findings TECHNICAL DOCUMENTATION: JOB ID: [id number] [employer]- All Rights Reserved Reading location - IP/workstation name: [email or web address]
--- NOTE | 2019-05-25 12:35 | RADIOLOGY REPORT (SQ) ---
EXAM DESCRIPTION: CERV SP 4 OR 5 VIEWS COMPLETED DATE/TIME: 05/25/2019 12:15 pm REASON FOR STUDY: Crush injury trapped in a [place] hog by a tree COMPARISON: None. NUMBER OF VIEWS: Five views. TECHNIQUE: AP, lateral, obliques and odontoid radiographic images acquired of the cervical spine. LIMITATIONS: On the lateral view, the cervical spine is seen down to the C4-5 disc space. Swimmer's view shows grossly normal alignment from C4 through T1. FINDINGS: MINERALIZATION: Normal. ALIGNMENT: Anatomic. VERTEBRAE: Vertebral bodies of normal height. DISCS: No significant osteophytes or sclerosis. Disc height maintained. FORAMINA: On the right side, high-grade C3-4, C5-6, and C6-7 foraminal narrowing is present from bony spurring. On the left side, high-grade C6-7 foraminal narrowing is present from bony spurring. LATERAL AND POSTERIOR ELEMENTS: Facets, lateral masses and spinous processes without significant find ings. HARDWARE: None in the spine. SOFT TISSUES: No prevertebral soft tissue swelling OTHER: No other significant finding. IMPRESSION: Limited study. No acute fracture or malalignment TECHNICAL DOCUMENTATION: JOB ID: [id number] [employer]- All Rights Reserved Reading location - IP/workstation name: [email or web address]
--- NOTE | 2019-05-25 12:36 | ER Document Report ---
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 Has subjective tingling in the thumb and index finger on the right. Minimal shoulder pain. Mild neck pain. Compartment syndromethis feels the same. TRAVEL OUTSIDE OF THE [place] IN LAST 30 DAYS: No - Related Data Allergies/Adverse Reactions: ibuprofen Adverse Reaction (Verified 05/25/19 11:40) Past Medical History - General Information source: Patient - Social History Smoking Status: Former Smoker Family History: CAD - Father, early CAD Patient has suicidal ideation: No Patient has homicidal ideation: No Pulmonary Medical History: Reports: Hx Pneumonia - x3-4, last time 2017 Renal/ Medical History: Denies: Hx Peritoneal Dialysis Past Surgical History: Reports: Hx Neurologic Surgery - Head surgery to remove windshield x2, Hx Orthopedic Surgery - left knee x12 right knee x1, left arm x2, Hx Tonsillectomy Review of Systems - Review of Systems Notes: REVIEW OF SYSTEMS GEN: Denies fever, chills, weight loss ENT: Denies sore throat, nasal discharge, ear pain EYES: Denies blurry vision, eye pain, discharge CV: Denies chest pain, palpitations, edema RESP: Denies cough, shortness of breath, wheezing GI: Denies abdominal pain, nausea, vomiting, diarrhea MSK: Right arm pain SKIN: Denies rash, skin lesions LYMPH: Denies swollen glands/lymph nodes NEURO: Right hand paresthesia PSYCH: Denies depression, suicidal or homicidal ideation PHYSICAL EXAMINATION General: No acute distress, well-nourished Head: Atraumatic, normocephalic ENT: Mouth normal, oropharynx moist, no exudates or tonsillar enlargement Eyes: Conjunctiva normal, pupils equal, lids normal Neck: No JVD, supple, no guarding CVS: Normal rate, regular rhythm, no murmurs Resp: No resp distress, equal and normal breath sounds bilaterally GI: Nondistended, soft, no tenderness to palpation, no rebound or guarding Ext: Tight compartment and hematoma on the radial aspect of the dorsal right forearm with minimal movement at the elbow. Good radial and ulnar pulse, good finger cap refill. Limited range of motion below the mid bicep area. Biceps compartment appears soft. Back: No CVA or midline TTP Skin: No rash, warm Lymphatic: No lymphadeopathy noted Neuro: Paresthesia radial aspect of the right hand awake, alert. Face symmetric. GCS 15. Physical Exam - Vital signs Vitals: Temp Pulse Resp BP Pulse Ox 97.9 F 82 18 155/103 H 97 05/25/19 11:40 05/25/19 11:40 05/25/19 11:40 05/25/19 11:40 05/25/19 11:40 Course - Re-evaluation Re-evalutation: 05/25/19 12:35 Patient presents with traumatic hematoma of the right forearm with signs of early compartment syndrome. Neurovascular intact at this point but has subjective paresthesias and pain on passive ulnar deviation X-rays appear negative Given Dilaudid labs obtained We will elevate extremity Plan for compartment measurement and Ortho consult Discussed with Dr. Beverly at 1230he will obtain compartment pressures when he comes to see the patient shortly 05/25/19 14:16 Patient been evaluated by Dr. Beverly at approximately [address] Beverly told the patient he will need to be admitted and is ordered an MRI. I do not know what his compartment pressure was, but based on the disposition I presume it was either equivocal, or low as the MRI has been ordered and the patient is being admitted for observation. - Vital Signs Vital signs: Temp Pulse Resp BP Pulse Ox 97.8 F 82 15 160/109 H 95 05/25/19 13:01 05/25/19 11:40 05/25/19 13:01 05/25/19 13:01 05/25/19 13:01 - Laboratory Result Diagrams: 05/25/19 12:45 05/25/19 12:45 Laboratory results interpreted by me: 05/25/19 05/25/19 12:45 12:45 MCV 99 H MCH 35.1 H Potassium 3.5 L Chloride 110 H Carbon Dioxide 21 L BUN 22 H Calcium 8.0 L - Diagnostic Test Radiology reviewed: Image reviewed, Reports reviewed Critical Care Note - Critical Care Note Total time excluding time spent on procedures (mins): 32 Comments: Critical care Discharge - Discharge Clinical Impression: Traumatic hematoma of forearm Qualifiers: Encounter type: initial encounter Laterality: right Qualified Code(s): S50.11XA - Contusion of right forearm, initial encounter Condition: Fair Disposition: ADMITTED INPATIENT Admitting Provider: duane Unit Admitted: Surgical Floor
[2019-05-25 12:55] LABS: ABSOLUTE EOSINOPHILS # (AUTO) 0.2 10^3/uL (0.0-0.6); ABSOLUTE MONOCYTES (AUTO) 0.6 10^3/uL (0.1-1.4); ABSOLUTE NEUT (AUTO) 4.8 10^3/uL (1.7-8.2); BASOPHILS % (AUTO) 0.5 % (0-2); HEMATOCRIT 44.8 % (37.9-51.0); HEMOGLOBIN 15.9 g/dL (13.5-17.0); LYMPHOCYTES % (AUTO) 25.8 % (13-45); MEAN CORPUSCULAR HEMOGLOBIN 35.1 pg (27.0-33.4); MEAN CORPUSCULAR HGB CONC 35.5 g/dL (32.0-36.0); MEAN CORPUSCULAR VOLUME 99 fl (80-97); MONOCYTES % (AUTO) 7.4 % (3-13); PLATELET COUNT 171 10^3/uL (150-450); RED BLOOD COUNT 4.53 10^6/uL (4.35-5.55); RED CELL DISTRIBUTION WIDTH 12.4 % (11.5-14.0); SEGMENTED NEUTROPHILS % (AUTO) 63.3 % (42-78); TOTAL CELLS COUNTED % (AUTO) 100 %; WHITE BLOOD COUNT 7.6 10^3/uL (4.0-10.5)
[2019-05-25 13:11] LABS: ANION GAP 10 (5-19); BLOOD UREA NITROGEN 22 mg/dL (7-20); CARBON DIOXIDE 21 mmol/L (22-30); CHLORIDE 110 mmol/L (98-107); CREATINE KINASE 84 U/L (55-170); GLUCOSE 94 mg/dL (75-110); POTASSIUM 3.5 mmol/L (3.6-5.0)
--- NOTE | 2019-05-25 13:11 | PDOC H&P ---
History of Present Illness History of Present Illness: DOMITILA TOVAR is a 58 year old male The patient is a 58-year-old [id number] white male who presents with complaints of right upper extremity pain. 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 Patient now presents status post a crush injury to the right upper extremity when using a bobcat this morning. He presents the emergency room with multiple complaints of pain including his right shoulder, his neck, mostly his right proximal forearm. The patient is complaining of numbness over the entire forearm distal to the proximal third. There is brisk capillary refill. Sensory examination is subjectively altered. Motor strength is not assessable because of the patient's discomfort. Past Medical History Pulmonary Medical History: Reports: Pneumonia - x3-4, last time 2017 Musculoskeltal Medical History: Reports: Arthritis, Fibromyalgia Musculoskeletal History Note: Osteoarthritis, rheumatoid arthritis, fibromyalgia As previously noted patient status post lower extremity fasciotomy for compartment syndrome in the in Halls. Past Surgical History Past Surgical History: Reports: Orthopedic Surgery - left knee x12 right knee x1, left arm x2, Tonsillectomy Social History Information Source: Patient, [facility] Records Smoking Status: Former Smoker Family History Family History: CAD - Father, early CAD Parental Family History Reviewed: No Children Family History Reviewed: No Sibling(s) Family History Reviewed.: No Medication/Allergy Allergies/Adverse Reactions: ibuprofen Adverse Reaction (Verified 05/25/19 11:40) Review of Systems All systems: as per H Physical Exam Vital Signs: Temp Pulse Resp BP Pulse Ox 36.6 C 82 18 155/103 H 97 05/25/19 11:40 05/25/19 11:40 05/25/19 11:40 05/25/19 11:40 05/25/19 11:40 Intake & Output 05/24/19 05/25/19 05/26/19 06:59 06:59 06:59 Weight 113.398 kg Physical Exam: The patient is a burly middle-aged white male lying on [facility] in at least moderate distress. His right upper extremity is couch with his left hanging at his side. Examination of the extremity reveals a heavily tattooed deltoid region which has minor tenderness to palpation. There is swelling and tenderness over the mobile wad just distal to the antecubital crease which is exquisitely tender to palpation.. Any stretch of the mobile wad musculature results in discomfort for the patient. There are palpable radial pulses. There is a subjective sensory deficit that begins over the junction of the proximal and distal thirds of the forearm and extends distally in a stocking glove type fashion General appearance: PRESENT: severe distress Head exam: PRESENT: normocephalic Respiratory exam: PRESENT: unlabored Cardiovascular exam: PRESENT: RRR Pulses: PRESENT: normal radial pulses Vascular exam: PRESENT: normal capillary refill GI/Abdominal exam: PRESENT: soft Rectal exam: PRESENT: deferred Extremities exam: PRESENT: tenderness Neurological exam: PRESENT: alert, awake, oriented to person, oriented to place, oriented to time, oriented to situation. ABSENT: motor sensory deficit Skin exam: PRESENT: dry, intact, warm. ABSENT: cyanosis, rash Results Laboratory Results: 05/25/19 12:45 05/25/19 12:45 WBC 7.6 RBC 4.53 Hgb 15.9 Hct 44.8 MCV 99 H MCH 35.1 H MCHC 35.5 RDW 12.4 Plt Count 171 Seg Neutrophils % 63.3 Impressions: Cervical Spine X-Ray 05/25/19 11:42 IMPRESSION: Limited study. No acute fracture or malalignment Elbow X-Ray 05/25/19 11:42 IMPRESSION: Arthritis right elbow. No acute fracture Forearm X-Ray 05/25/19 11:42 IMPRESSION: No acute fracture or malalignment. Forearm soft tissue swelling Advanced osteoarthritis right elbow Shoulder X-Ray 05/25/19 11:42 IMPRESSION: No acute findings Status: Imported from PACS Assessment & Plan - Diagnosis (1) Traumatic hematoma of forearm Qualifiers: Encounter type: initial encounter Laterality: right Qualified Code(s): S50.11XA - Contusion of right forearm, initial encounter Is this a current diagnosis for this admission?: Yes Plan: Patient with a nondominant right forearm contusion and a questionable underlying compartment syndrome. Patient undergoes compartment measuring this afternoon with values of between 14 and 16 mmHg. Plan will be for a subsequent MRI scan with contrast and a course of observation. - Time Time Spent: 50 to 70 Minutes Anticipated discharge: Home Within: Other
--- NOTE | 2019-05-25 13:12 | Operative Report ---
Operative Report DATE OF SURGERY: 05/25/19 PREOPERATIVE DIAGNOSIS: Right forearm contusion OPERATION: Right forearm intramuscular compartment pressure measurement SURGEON: LOYDA GARLAND PROCEDURE: With the patient supine on the ER [facility] the dorsal forearm was sterilized with alcohol. The [employer] compartment measuring device is inserted and returns pressures of between 14 and 16 mmHg. The device is removed. Sterile dressings applied.
[2019-05-25 13:23] LABS: INTERNATIONAL RATION (INR) 1.04; PROTHROMBIN TIME 13.6 SEC (11.4-15.4)
[2019-05-25 13:24] LABS: PARTIAL THROMBOPLASTIN TIME 33.3 SEC (23.5-35.8)
--- NOTE | 2019-05-25 14:45 | RADIOLOGY REPORT (SQ) ---
EXAM DESCRIPTION: SKULL 1-3 VIEWS COMPLETED DATE/TIME: 05/25/2019 2:21 pm REASON FOR STUDY: FB COMPARISON: None. NUMBER OF VIEWS: Three views. TECHNIQUE: AP and lateral views of the orbits. LIMITATIONS: None. FINDINGS: ORBITS: No fracture. No foreign body. SINUSES: No mucosal thickening. No air fluid levels. FACIAL BONES: No fracture. OTHER: No other significant finding. IMPRESSION: NEGATIVE STUDY OF THE ORBITS. NO RADIO-OPAQUE FOREIGN BODY. THE PATIENT IS CLEARED FOR MRI SCANNING. TECHNICAL DOCUMENTATION: JOB ID: [id number]- All Rights Reserved Reading location - IP/workstation name: [email or web address]
--- NOTE | 2019-05-25 15:03 | RADIOLOGY REPORT (SQ) ---
EXAM DESCRIPTION: CHEST SINGLE VIEW COMPLETED DATE/TIME: 05/25/2019 2:21 pm REASON FOR STUDY: pre op COMPARISON: AP chest 07/08/2018 EXAM PARAMETERS: NUMBER OF VIEWS: One view. TECHNIQUE: Single frontal radiographic view of the chest acquired. RADIATION DOSE: NA LIMITATIONS: None. FINDINGS: LUNGS AND PLEURA: No opacities, masses or pneumothorax. No pleural effusion. MEDIASTINUM AND HILAR STRUCTURES: No masses. Contour normal. HEART AND VASCULAR STRUCTURES: Heart normal in size. Normal vasculature. BONES: No acute findings. HARDWARE: None in the chest. OTHER: No other significant finding. IMPRESSION: NO ACUTE RADIOGRAPHIC FINDING IN THE CHEST. TECHNICAL DOCUMENTATION: JOB ID: [id number] [employer]- All Rights Reserved Reading location - IP/workstation name: [email or web address]
[2019-05-25] MEDS ORDERED: MORPHINE SULFATE 10 MG/ML INJ IV PRN (15:49)
[2019-05-25] MEDS ORDERED: ONDANSETRON 4 MG TAB.RAPDIS PO PRN (15:50)
--- NOTE | 2019-05-25 15:52 | RADIOLOGY REPORT (SQ) ---
EXAM DESCRIPTION: MRI RT UPPER EXTREMITY WITHOUT COMPLETED DATE/TIME: 05/25/2019 3:24 pm REASON FOR STUDY: compartment syndrome er 3 COMPARISON: None. TECHNIQUE: Multiplanar imaging of the right forearm to include fat and fluid sensitive sequences. LIMITATIONS: Motion artifact. FINDINGS: BONE MARROW: Normal. SOFT TISSUES: There is a high-grade partial tear of the origin of the extensor carpi radialis at the edge of the [id number]. Hematoma measures approximately 4 cm maximum diameter. High T2 signal ex tends into the musculotendinous junction. Neurovascular structures grossly intact but evaluation ruelas ited without contrast and with the amount of motion artifact. OTHER: No other significant finding. IMPRESSION: High-grade partial tear of the origin of the extensor carpi radialis. TECHNICAL DOCUMENTATION: JOB ID: [id number] [employer]- All Rights Reserved Reading location - IP/workstation name: [email or web address]
[2019-05-25] MEDS: HYDROMORPHONE HCL INJ/PF 2 MG/ML AMPULE IV PRN ×4 (16:17→23:34)
[2019-05-25] MEDS: RINGERS SOLUTION,LACTATED 1,000 ML IV PRN (20:56)
[2019-05-26] MEDS: HYDROMORPHONE HCL INJ/PF 2 MG/ML AMPULE IV PRN ×4 (01:28→06:48)
[2019-05-26] MEDS: RINGERS SOLUTION,LACTATED 1,000 ML IV PRN (03:34)
--- NOTE | 2019-05-26 08:58 | Discharge Summary ---
Discharge Summary (SDC) - Discharge Final Diagnosis: Hematoma right forearm Date of Surgery: 05/25/19 Discharge Date: 05/26/19 Condition: Good Prescriptions: Oxycodone HCl [Oxy-Ir 5 mg Tablet] 5 mg PO Q6HP PRN #40 tab PRN Reason: Discharge Diet: Regular Respiratory Treatments at Home: Deep Breathing/Coughing Discharge Activity: Balance Activity w/Rest Home Care Assistance: None Needed Report the Following to Your Physician Immediately: Shortness of Breath, Fever over 101 Degrees
[2019-05-26 09:07] VITALS: BP 153/93
--- NOTE | 2019-05-26 14:24 | EKG REPORT ---
SEVERITY:- NORMAL ECG - SINUS RHYTHM : Confirmed by: Emerson Traylor 26-May-2019 14:23:18
== END 2019-05-26 09:14 | disposition home or self-care (01) ==
LOC: ER 11:37 → UNDOADMIN 13:37 → EH 13:37 → 5 19:28 → EH 19:28 → ER 05-26 09:14 → UNDODISIN 05-26 09:15 → ASU 05-26 13:54 → ER 05-26 13:55
PROVIDERS: ATTEND Orthopaedic Surgery
DX: S50.11XA Contusion of right forearm, initial encounter (principal); S56.511A Strain of other extensor muscle, fascia and tendon at forearm level, right arm, initial encounter; W23.0XXA Caught, crushed, jammed, or pinched between moving objects, initial encounter; Y93.89 Activity, other specified; Y92.69 Other specified industrial and construction area as the place of occurrence of the external cause; M19.021 Primary osteoarthritis, right elbow; M54.2 Cervicalgia; M25.511 Pain in right shoulder; Z87.891 Personal history of nicotine dependence; M79.7 Fibromyalgia; M06.9 Rheumatoid arthritis, unspecified
CPT/HCPCS: 93005; 99291; 96374; 36415; 82550; 85025; 85610; 85730; 80048; 73218; 72050; 71045; 73080; 73090; 73030; 70250; 93010; J1170 ×2; J7120 ×2

== ENCOUNTER 2020-01-24 08:18 | Emergency (ER) | payer SELFPAY ==
[2020-01-24 08:26] VITALS: BP 144/92
--- NOTE | 2020-01-24 09:32 | ER Document Report ---
HPI - HPI Time Seen by Provider: 01/24/20 09:30 Pain Level: 3 Notes: 59-year-old male patient presents emergency department chief complaint of right knee pain. Patient reports multiple knee injuries in the past with surgical repair. He states about a week ago he thinks he tore something in his knee. This morning when he woke up he states he moved wrong and felt what seemed like a tearing sensation again. He states if his knee is slightly flexed the pain is tolerable, if the knee is straight it is severe pain. He is unable to bear weight on it. - ROS Systems Reviewed and Negative: Yes All other systems reviewed and negative - REPRODUCTIVE Reproductive: DENIES: : - MUSCULOSKELETAL Musculoskeletal: REPORTS: Extremity pain Past Medical History - General Information source: POA - Power of Physician Assistant Surgery - Social History Smoking Status: Never Smoker Chew tobacco use (# tins/day): No Frequency of alcohol use: Heavy Drug Abuse: None Family History: CAD - Father, early CAD Patient has homicidal ideation: No Pulmonary Medical History: Reports: Hx Pneumonia - x3-4, last time 2017 Renal/ Medical History: Denies: Hx Peritoneal Dialysis Musculoskeletal Medical History: Reports Hx Arthritis, Reports Hx Fibromyalgia Past Surgical History: Reports: Hx Neurologic Surgery - Head surgery to remove windshield x2, Hx Orthopedic Surgery - left knee x12 right knee x1, left arm x2, Hx Tonsillectomy Vertical Provider Document - CONSTITUTIONAL Notes: PHYSICAL EXAMINATION: GENERAL: Well-appearing, well-nourished and in no acute distress. HEAD: Atraumatic, normocephalic. EYES: Pupils equal round extraocular movements intact, conjunctiva are normal. ENT: Nares patent NECK: Normal range of motion LUNGS: No respiratory distress Musculoskeletal: Swelling noted to the anterior surface of the right knee. No obvious deformity, tenderness along the medial aspect. No crepitus. Strong popliteal pulse. Strong dorsalis pedis pulse. Normal sensation distally NEUROLOGICAL: Normal speech. PSYCH: Normal mood, normal affect. SKIN: Warm, Dry, normal turgor, no rashes or lesions noted. - INFECTION CONTROL TRAVEL OUTSIDE OF THE [place] IN LAST 30 DAYS: No Course - Re-evaluation Re-evalutation: 01/24/20 09:59 Knee X-Ray 01/24/20 09:06 IMPRESSION: 1. No acute osseous abnormality of the right knee. 2. Tricompartmental osteoarthrosis. 3. The corticated osseous fragments that project above the lateral tibial plateau on the oblique view could represent the sequela of a prior biceps femoris tendon avulsion fracture. There is nothing acute on the x-ray. Patient will likely need to follow-up with orthopedics for consideration of an MRI. He will be referred to Dr. Nino. Short course of pain medication will also be provided. Patient verbalizes understanding and agreement with treatment plan. - Vital Signs Vital signs: Temp Pulse Resp BP Pulse Ox 98.0 F 79 18 144/92 H 94 01/24/20 08:59 01/24/20 08:25 01/24/20 08:25 01/24/20 08:25 01/24/20 08:25 Procedures - Immobilization R knee Pre-Proc Neuro Vasc Exam: Normal Immobilizer type: Crutches, Knee immobilizer Performed by: ANEESH Post-Proc Neuro Vasc Exam: Normal Alignment checked and good: Yes Discharge - Discharge Clinical Impression: Right knee injury Qualifiers: Encounter type: initial encounter Qualified Code(s): S89.91XA - Unspecified injury of right lower leg, initial encounter Condition: Stable Disposition: HOME, SELF-CARE Additional Instructions: Suspected Internal Knee Injury The x-ray today showed no acute findings. The examiner of your injured knee suspects an internal injury to the cartilage or internal ligaments. This must be further investigated by an orthopedics pediatric physician. The knee should be protected, ice packed, and elevated while awaiting your follow-up exam by the orthopedist. If there is severe swelling, severe pain, or any new symptoms while awaiting your exam, you should call the orthopedist. (If he/she is unavailable, call us or return for re-examination.) Please use the knee immobilizer and crutches. Take pain medication as prescribed. It is important that you follow-up with either orthopedics or the [facility] for follow-up and consideration of an MRI. Please return to the emergency department with any new or worsening concerns. Prescriptions: Oxycodone HCl/Acetaminophen [Percocet 5-325 mg Tablet] 1 tab PO Q6HP PRN #15 tablet PRN Reason: Forms: Return to Work Referrals: CONNER NINO DO [ACTIVE STAFF] - Follow up as needed
[2020-01-24] MEDS ORDERED: OXYCODONE-ACETAMINOPHEN 5-325 MG TABLET PO ONE (09:49)
--- NOTE | 2020-01-24 09:51 | RADIOLOGY REPORT (SQ) ---
EXAM DESCRIPTION: KNEE RIGHT 4 VIEWS IMAGES COMPLETED DATE/TIME: 01/24/2020 9:33 am REASON FOR STUDY: KNEE INJURY COMPARISON: None. NUMBER OF VIEWS: Four views. TECHNIQUE: AP, lateral, and both oblique radiographic images acquired of the right knee. LIMITATIONS: None. FINDINGS: MINERALIZATION: Normal. BONES: The corticated osseous fragments that project above the lateral tibial plateau on the oblique view could represent the sequela of a prior biceps femoris tendon avulsion fracture. There is no acu te fracture or dislocation. JOINT: Tricompartmental osteoarthrosis. There is no joint effusion. The quadriceps and patellar ten don silhouettes are intact. SOFT TISSUES: No soft tissue swelling. OTHER: No other finding. IMPRESSION: 1. No acute osseous abnormality of the right knee. 2. Tricompartmental osteoarthrosis. 3. The corticated osseous fragments that project above the lateral tibial plateau on the oblique view could represent the sequela of a prior biceps femoris tendon avulsion fracture. TECHNICAL DOCUMENTATION: JOB ID: [id number] [employer]- All Rights Reserved Reading location - IP/workstation name: [email or web address]
== END 2020-01-24 10:41 | disposition home or self-care (01) ==
LOC: ER 08:18
DX: S89.91XA Unspecified injury of right lower leg, initial encounter (principal); X58.XXXA Exposure to other specified factors, initial encounter; M17.11 Unilateral primary osteoarthritis, right knee
CPT/HCPCS: 99283

== ENCOUNTER 2020-03-27 21:44 | Emergency (ER) | payer SELFPAY ==
[2020-03-27] MEDS ORDERED: ONDANSETRON HCL INJ/PF 4 MG/2 ML SDV IV ONE (21:58)
[2020-03-27] MEDS ORDERED: HYDROMORPHONE HCL INJ/PF 2 MG/ML AMPULE IV ONE ×2 (21:58→23:10)
[2020-03-27] MEDS ORDERED: NORMAL SALINE 1000 ML 1,000 ML IV ONE (21:58)
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
[2020-03-28 00:21] VITALS: BP 144/87
[2020-03-28] MEDS ORDERED: HYDROCODONE/ACETAMINOPHEN 5-325 MG (6 TAB/ER DISP) PO PRN (00:25)
[2020-03-28] MEDS ORDERED: HYDROMORPHONE HCL INJ/PF 2 MG/ML AMPULE IV ONE (00:25)
== END 2020-03-28 01:02 | disposition home or self-care (01) ==
LOC: ER 21:44
DX: S20.212A Contusion of left front wall of thorax, initial encounter (principal); S80.02XA Contusion of left knee, initial encounter; S80.01XA Contusion of right knee, initial encounter; S50.312A Abrasion of left elbow, initial encounter; S80.211A Abrasion, right knee, initial encounter; M79.644 Pain in right finger(s); V20.0XXA Motorcycle driver injured in collision with pedestrian or animal in nontraffic accident, initial encounter; Y93.89 Activity, other specified; M47.812 Spondylosis without myelopathy or radiculopathy, cervical region; K76.0 Fatty (change of) liver, not elsewhere classified; Z96.652 Presence of left artificial knee joint
CPT/HCPCS: 96376; 99285; 96361; 96374; 96375; 73080; 73130; 73564 ×2; 70450; 71260; 72125; 74177; J1170 ×2; J2405; J7030

== ENCOUNTER 2020-05-15 08:35 | Emergency (ER) | payer SELFPAY ==
--- NOTE | 2020-05-15 10:08 | ER Document Report ---
ED Flu Like - General Chief Complaint: Flu Symptoms Stated Complaint: COUGH CONGESTION WEAKNESS Time Seen by Provider: 05/15/20 09:50 Primary Care Provider: BRENNA CANNON [Primary Care Provider] - Follow up as needed Mode of Arrival: Ambulatory Information source: Patient Notes: 59-year-old male presented to ED for cough congestion runny nose sore throat x2 weeks. He states his girlfriend has lost her sense of taste and smell. He has not lost distances taste and smell. He has had a low-grade temp. He states he wants to know if he has the Covid and why he is having such body aches. He states he has had some muscle aches and diarrhea for 2 weeks. He states he does not want any medications. He denies smoking but he states he does drink heavily at least several bourbons a day. He does not use any illicit drugs. He states he does not want to put any poison in his body except for his bourbon. Constitutional: States he had a low-grade fever HENT: Cough congestion runny nose sore throat x2 weeks dates his girlfriend lost her sense of taste and smell but he has not Eyes: Negative for visual changes. Cardiovascular: Negative for chest pain. Respiratory: Cough and congestion Gastrointestinal: Negative for abdominal pain, vomiting or diarrhea. Genitourinary: Negative for dysuria. Musculoskeletal: Complains of body aches Skin: Negative for rash. Neurological: Negative for headaches, weakness or numbness. 10 point ROS negative except as marked above and in HPI. VITAL SIGNS: Within normal limits. GENERAL: No acute distress, non-toxic appearance. HEAD: Normal with no signs of head trauma. EYES: PERRLA, EOMI, conjunctiva normal, no discharge. EARS: Hearing grossly intact. NOSE: Normal. THROAT: Oropharynx is normal. NECK: Normal range of motion, no tenderness, supple, no lymphadenopathy, No adenopathy, no JVD. CHEST: Clear breath sounds bilaterally. No wheezes, rales, or rhonchi. CARDIAC: Regular rate and rhythm. S1 and S2, without murmurs, gallops, or rubs. VASCULAR: No Edema. Peripheral pulses normal and equal in all extremities. ABDOMEN: Normal and soft with no tenderness, no masses or pulsatile masses. GASTROINTESTINAL: Bowel sounds normal GENITOURINARY: Normal, No tenderness LYMPATHTIC: No lymphadenopathy noted. MUSCULOSKELETAL: Good range of motion of all major joints. Extremities without clubbing, cyanosis or edema. NEUROLOGICAL: Alert and oriented x 3. No focal sensory or strength deficits. Speech normal. Follows commands appropriately. PSYCHIATRIC: Normal Affect, judgement and mood. SKIN: Normal appearance with no rashes or lesions. TRAVEL OUTSIDE OF THE [place] IN LAST 30 DAYS: No - HPI Timing/Duration: Intermittent Quality of pain: Achy Severity: Mild Pain Level: 1 Shortness of breath: Mild Associated symptoms: Body/muscle aches, Productive cough, Fever, Sinus pain/drainage - Low-grade, Shortness of breath Similar symptoms previously: Yes Recently seen / treated by doctor: No - Related Data Allergies/Adverse Reactions: ibuprofen Adverse Reaction (Verified 01/24/20 08:59) Past Medical History - General Information source: Patient - Social History Smoking Status: Never Smoker Frequency of alcohol use: None Family History: Reviewed & Not Pertinent, CAD - Father, early CAD Pulmonary Medical History: Reports: Hx Pneumonia - x3-4, last time 2016 Renal/ Medical History: Denies: Hx Peritoneal Dialysis Musculoskeletal Medical History: Reports Hx Arthritis, Reports Hx Fibromyalgia Past Surgical History: Reports: Hx Neurologic Surgery - Head surgery to remove windshield x2, Hx Orthopedic Surgery - left knee x12 right knee x1, left arm x2, Hx Tonsillectomy Physical Exam - Vital signs Vitals: Temp Pulse Resp BP Pulse Ox 99.1 F 86 16 133/80 H 96 05/15/20 08:57 05/15/20 08:57 05/15/20 08:57 05/15/20 08:57 05/15/20 08:57 Course - Re-evaluation Re-evalutation: 05/15/20 18:53 Discussed results of Covid that was positive with patient. He insists that this is all politics and he does not have Covid and he is not taking medicines for Covid. I discussed this with him at length until finally he did agree to take azithromycin because he does have bilateral basilar pneumonia which could be Covid or bacterial so I have convinced him to take the azithromycin and I have sent a prescription to the [facility] that he requested. - Vital Signs Vital signs: Temp Pulse Resp BP Pulse Ox 99.1 F 82 18 128/78 H 98 05/15/20 08:57 05/15/20 12:54 05/15/20 12:54 05/15/20 12:54 05/15/20 12:54 - Laboratory Results Laboratory Results Interpreted: 05/15/20 10:43 SARS-CoV-2 (PCR) DETECTED H Critical Laboratory Results Reviewed: No Critical Results - Radiology Results Critical Radiology Results Reviewed: No Critical Results Discharge - Discharge Clinical Impression: COVID-19 Condition: Stable Disposition: HOME, SELF-CARE Instructions: COVID-19 Guidance for Persons Under Investigation Additional Instructions: Your test came back positive for COVID-19. You have ordered you vitamin C 500 mg now and you need to take that twice a day, vitamin D3 2000 units now and you need to take that once a day dexamethasone 8 mg by mouth now and you need to take that once a day for the next 3 days ivermectin 12 mg now you need to take that 2 more days vitamin B complex you need to take 1 a day. The 10 [id number] you can get at the drugstore just have someone go to the drugstore and get them for you the prescription for ivermectin I have given you as well as dexamethasone. Acetaminophen Acetaminophen may be taken for pain relief or fever control. It's much safer than aspirin, offering a wider range of "safe" dosages. It is safe during . Some brand names are Tylenol, Panadol, Datril, Anacin 3, Tempra, and Liquiprin. Acetaminophen can be repeated every four hours. The following are maximum recommended dosages: WEIGHT Dose Drops Elixir Chewable(80mg) (LBS.) drprs=droppers tsp=teaspoon 6 40 mg .4 ml (1/2) 6-11 80 mg .8 ml (full) 1/2 tsp 1 tab 12-16 120 mg 1 1/2 drprs 3/4 tsp 1 1/2 tabs 17-23 160 mg 2 drprs 1 tsp 2 tabs 24-30 240 mg 3 drprs 1 1/2 tsp 3 tabs 30-35 320 mg 2 tsp 4 tabs 36-41 360 mg 2 1/4 tsp 4 1/2 tabs 42-47 400 mg 2 1/2 tsp 5 tabs 48-53 480 mg 3 tsp 6 tabs 54-59 520 mg 3 1/4 tsp 6 1/2 tabs 60-64 560 mg 3 1/2 tsp 7 tabs 65-70 600 mg 3 3/4 tsp 7 1/2 tabs 71-76 640 mg 4 tsp 8 tabs 77-82 720 mg 4 1/2 tsp 9 tabs 83-88 800 mg 5 tsp 10 tabs >89 pounds or adults 650 mg to 900 mg Acetaminophen can be repeated every four hours. Maximum daily dose not to exceed 4000 mg. These maximum recommended dosages are slightly higher than the dosages written on the product container, but these dosages are very safe and well below the toxic dosage for acetaminophen. Prescriptions: Dexamethasone [Decadron 4 mg Tablet] 8 mg PO DAILY #10 tablet Ivermectin [Stromectol 3 mg Tablet] 12 mg PO DAILY #12 tablet Azithromycin [Zithromax 250 mg Tablet] 250 mg PO ASDIR #6 tablet Forms: Elevated Blood Pressure Referrals: [facility]AL[facility],NO [Primary Care Provider] - Follow up as needed
--- NOTE | 2020-05-15 10:47 | RADIOLOGY REPORT (SQ) ---
EXAM DESCRIPTION: CHEST SINGLE VIEW IMAGES COMPLETED DATE/TIME: 05/15/2020 10:21 am REASON FOR STUDY: cough congestion COMPARISON: 05/25/2019 EXAM PARAMETERS: NUMBER OF VIEWS: One view. TECHNIQUE: Single frontal radiographic view of the chest acquired. RADIATION DOSE: NA LIMITATIONS: None. FINDINGS: LUNGS AND PLEURA: Patchy bibasilar airspace disease. Most likely developing pneumonia. N o effusions. No pneumothorax. MEDIASTINUM AND HILAR STRUCTURES: No masses. Contour normal. HEART AND VASCULAR STRUCTURES: Heart normal in size. Normal vasculature. BONES: No acute findings. HARDWARE: None in the chest. OTHER: No other significant finding. IMPRESSION: New patchy bibasilar airspace disease consistent with pneumonia. TECHNICAL DOCUMENTATION: JOB ID: [id number] 2010 [employer]- All Rights Reserved Reading location - IP/workstation name: [email or web address]
[2020-05-15] MEDS ORDERED: ASCORBIC ACID 500 MG TABLET PO ONE (12:20)
[2020-05-15] MEDS ORDERED: CHOLECALCIFEROL (D3) 400 UNIT TABLET PO ONE (12:20)
[2020-05-15] MEDS ORDERED: VITAMIN B COMPLEX TABLET PO ONE (12:20)
[2020-05-15] MEDS ORDERED: IVERMECTIN 3 MG TABLET PO ONE (12:22)
[2020-05-15] MEDS ORDERED: DEXAMETHASONE 4 MG TABLET PO ONE (12:22)
[2020-05-15 12:56] VITALS: BP 128/78
== END 2020-05-15 12:56 | disposition home or self-care (01) ==
LOC: ER 08:35
DX: U07.1 COVID-19 (principal); J18.9 Pneumonia, unspecified organism; R05 Cough; R09.89 Other specified symptoms and signs involving the circulatory and respiratory systems; J02.9 Acute pharyngitis, unspecified; R19.7 Diarrhea, unspecified; M79.10 Myalgia, unspecified site; R50.9 Fever, unspecified; R06.02 Shortness of breath; J34.89 Other specified disorders of nose and nasal sinuses
CPT/HCPCS: 99284; 36415; 87070; 87880; 0202U; 71045; C9803